=== PATIENT | female | born 1975 | race African-American/Black ===

== ENCOUNTER 2021-12-07 12:50 | Outpatient (CLI) | payer OTHER | END 2021-12-07 12:51 | disposition home or self-care (01) | LOC: CSHWCC 12:50 | PROVIDERS: ATTEND Nurse Practitioner Family | DX: L89.154 Pressure ulcer of sacral region, stage 4 (principal); L89.893 Pressure ulcer of other site, stage 3; L89.313 Pressure ulcer of right buttock, stage 3; L98.499 Non-pressure chronic ulcer of skin of other sites with unspecified severity; L97.511 Non-pressure chronic ulcer of other part of right foot limited to breakdown of skin; Z93.3 Colostomy status ==

== ENCOUNTER 2021-12-08 06:24 | Inpatient (IN) | payer OTHER ==
[2021-12-08] MEDS ORDERED: Acetaminophen 650 MG Suppository PR PRN (08:02)
[2021-12-08 09:27] LABS: #Eosinphils 0.2 10x3/uL (0.0-0.5); #Monocytes 0.6 10x3/uL (0.0-1.1); #Neutrophils 10.6 10x3/uL (1.5-8.4); %Basophils 0.1 % (0.0-2.0); %Eosinophils 1.1 % (0.0-6.0); %Lymphocytes 17.2 % (18.0-47.0); %Monocytes 4.1 % (0.0-10.0); %Neutrophils 76.7 % (40.0-75.0); Hemoglobin 10.1 g/dL (12.0-15.5); Mean Corpuscular HGB CONC 30.6 g/dL (32.0-36.0); Mean Corpuscular Hemoglobin 25.3 pg (27.0-33.0); Mean Corpuscular Volume 82.5 fl (81.6-98.3); Mean Platelet Volume 8.7 fl (7.4-10.4); Platelet Count 470 10x3/uL (150-450); RBC Distribution Width 16.1 % (11.5-14.5); White Blood Cell (WBC) Count 13.9 10x3/uL (3.5-10.5)
[2021-12-08 09:46] LABS: Lactic Acid 3.1 mmol/L (0.5-2.2)
[2021-12-08 09:51] LABS: Anion Gap 17 mmol/L (10-20); BUN (Urea Nitrogen) 8 mg/dL (7.0-18.7); Calc. Creatinine Clearance 0 mL/min (70-130); Calcium 8.9 mg/dL (7.8-10.44); Carbon Dioxide 23 mmol/L (22-29); Chloride 97 mmol/L (98-107); Glucose 156 mg/dL (70-105); Magnesium 1.2 mg/dL (1.6-2.6); Potassium 4.1 mmol/L (3.5-5.1); Sodium 133 mmol/L (136-145)
[2021-12-08] MEDS: Aspirin 81 mg Enteric Coated Tablet PO SCH (11:30)
[2021-12-08] MEDS: Acetaminophen 325 MG TAB PO PRN ×2 (11:31→16:38)
[2021-12-08] MEDS: Folic Acid 1 MG TAB PO SCH ×2 (11:31→20:31)
[2021-12-08] MEDS: Gabapentin 300 MG CAP PO SCH ×3 (11:31→20:30)
[2021-12-08] MEDS: predniSONE 10 MG TAB PO SCH ×2 (11:32→20:31)
[2021-12-08 15:56] VITALS: BMI 44.1
[2021-12-08] MEDS: Simvastatin 10 MG TAB PO SCH (16:38)
[2021-12-08] MEDS ORDERED: FLU VACC QS2021-22(6MOS UP)/PF 60 MCG/0.5 ML SYRINGE IM ONE (16:45)
[2021-12-08] MEDS ORDERED: Enoxaparin Sodium 120 MG/0.8 ML SYRINGE SC SCH (17:30)
[2021-12-08] MEDS ORDERED: Dextrose 5% in Water 1,000 ML IV PRN (17:55)
[2021-12-08] MEDS ORDERED: Dextrose 50% Abboject 50 ML SYRINGE SLOW IVP PRN (17:55)
[2021-12-08] MEDS: Insulin Regular 300 UNITS/3 ML VIAL SC PRN ×2 (18:06→22:30)
[2021-12-09] MEDS ORDERED: hydrOXYzine 25 MG TAB PO PRN (06:28)
[2021-12-09] MEDS: Insulin Regular 300 UNITS/3 ML VIAL SC PRN ×3 (06:41→21:52)
[2021-12-09] MEDS: Acetaminophen 325 MG TAB PO PRN ×2 (06:50→17:13)
[2021-12-09] MEDS ORDERED: Ergocalciferol 1.25 MG(50,000 UNITS) CAP PO SCH (09:00)
[2021-12-09] MEDS: HumaLOG 300 UNITS/3 ML VIAL SC SCH ×3 (10:53→17:13)
[2021-12-09] MEDS: traMADol HCl 50 MG TAB PO PRN ×2 (11:52→21:51)
[2021-12-09] MEDS: Furosemide 20 MG TAB PO SCH (11:55)
[2021-12-09] MEDS: Enoxaparin Sodium 120 MG/0.8 ML SYRINGE SC SCH ×2 (11:56→21:52)
[2021-12-09] MEDS: Ascorbic Acid 500 mg Chewable Tablet PO SCH (11:56)
[2021-12-09] MEDS: Ziprasidone 20 MG CAP PO SCH ×2 (11:56→21:51)
[2021-12-09] MEDS: Aspirin 81 mg Enteric Coated Tablet PO SCH (11:56)
[2021-12-09] MEDS: Gabapentin 300 MG CAP PO SCH ×3 (11:56→21:50)
[2021-12-09] MEDS: Folic Acid 1 MG TAB PO SCH ×2 (11:56→21:51)
[2021-12-09] MEDS: Metoprolol Tartrate 25 MG TAB PO SCH ×2 (11:57→21:52)
[2021-12-09] MEDS: predniSONE 10 MG TAB PO SCH ×2 (11:57→21:50)
[2021-12-09] MEDS: Amlodipine 10 MG TAB PO SCH (11:57)
[2021-12-09] MEDS: Spironolactone 25 MG TAB PO SCH (11:58)
[2021-12-09] MEDS: Triamterene/Hydrochlorothiazide 37.5 mg/25 mg Tablet PO SCH (11:59)
[2021-12-09] MEDS: Methocarbamol 500 MG TAB PO SCH ×3 (12:00→21:50)
[2021-12-09 12:17] LABS: #Eosinphils 0.1 10x3/uL (0.0-0.5); #Monocytes 0.5 10x3/uL (0.0-1.1); #Neutrophils 9.5 10x3/uL (1.5-8.4); %Basophils 0.1 % (0.0-2.0); %Eosinophils 1.1 % (0.0-6.0); %Lymphocytes 16.1 % (18.0-47.0); %Monocytes 4.3 % (0.0-10.0); %Neutrophils 77.7 % (40.0-75.0); Mean Corpuscular HGB CONC 31.9 g/dL (32.0-36.0); Mean Corpuscular Hemoglobin 25.8 pg (27.0-33.0); Mean Corpuscular Volume 80.9 fl (81.6-98.3); Mean Platelet Volume 8.8 fl (7.4-10.4); Platelet Count 474 10x3/uL (150-450); RBC Distribution Width 15.9 % (11.5-14.5); Red Blood Cell (RBC) Count 3.87 10x6/uL (3.90-5.03); White Blood Cell (WBC) Count 12.3 10x3/uL (3.5-10.5)
[2021-12-09 12:42] LABS: ALT (SGPT) 14 U/L (8-55); AST (SGOT) 8 U/L (5-34); Albumin 3.1 g/dL (3.5-5.0); Alkaline Phosphatase 111 U/L (40-110); Anion Gap 15 mmol/L (10-20); BUN (Urea Nitrogen) 6 mg/dL (7.0-18.7); Bilirubin, Total 0.2 mg/dL (0.2-1.2); CRP (Inflammatory) 20.19 mg/dL (= or < 0.5); Calc. Creatinine Clearance 239 mL/min (70-130); Calcium 9.1 mg/dL (7.8-10.44); Carbon Dioxide 26 mmol/L (22-29); Chloride 93 mmol/L (98-107); Globulin 3.6 g/dL (2.4-3.5); Glucose 173 mg/dL (70-105); Magnesium 1.2 mg/dL (1.6-2.6); Phosphorus 2.6 mg/dL (2.3-4.7); Protein, Total 6.7 g/dL (6.0-8.3); Sodium 130 mmol/L (136-145)
[2021-12-09 14:54] LABS: Hemoglobin A1c 9.2 % (4.0-6.0)
[2021-12-09] MEDS: Sodium Chloride 0.9% 1,000 ML IV SCH ×2 (15:14→22:00)
[2021-12-09] MEDS: Ergocalciferol 1.25 MG(50,000 UNITS) CAP PO SCH (15:15)
[2021-12-09 15:25] LABS: Lactic Acid 3.7 mmol/L (0.5-2.2)
[2021-12-09 16:48] LABS: Legionella Urinary Ag Negative (Negative); Strep pneumo Urine Ag NEGATIVE (NEGATIVE)
[2021-12-09] MEDS: Simvastatin 10 MG TAB PO SCH (17:03)
[2021-12-09] MEDS: Azithromycin 500 MG in Sodium Chloride 0.9% 250 ML 250 ML IVPB SCH (20:00)
[2021-12-09] MEDS: Amitriptyline HCl 25 MG TAB PO SCH (21:50)
[2021-12-09] MEDS: cefTRIAXone\\ROCEPHIN 2 GM in Sodium Chloride 0.9% 100 ML IVPB SCH (22:12)
[2021-12-10 04:25] LABS: #Eosinphils 0.2 10x3/uL (0.0-0.5); #Monocytes 0.5 10x3/uL (0.0-1.1); #Neutrophils 8.6 10x3/uL (1.5-8.4); %Basophils 0.3 % (0.0-2.0); %Eosinophils 1.9 % (0.0-6.0); %Lymphocytes 14.5 % (18.0-47.0); %Monocytes 4.4 % (0.0-10.0); %Neutrophils 77.6 % (40.0-75.0); Hemoglobin 9.7 g/dL (12.0-15.5); Mean Corpuscular HGB CONC 31.8 g/dL (32.0-36.0); Mean Corpuscular Hemoglobin 25.7 pg (27.0-33.0); Mean Corpuscular Volume 80.9 fl (81.6-98.3); Mean Platelet Volume 9.1 fl (7.4-10.4); Platelet Count 447 10x3/uL (150-450); RBC Distribution Width 15.9 % (11.5-14.5); Red Blood Cell (RBC) Count 3.77 10x6/uL (3.90-5.03); White Blood Cell (WBC) Count 11.1 10x3/uL (3.5-10.5)
[2021-12-10 04:58] LABS: Anion Gap 15 mmol/L (10-20); BUN (Urea Nitrogen) 6 mg/dL (7.0-18.7); CRP (Inflammatory) 16.49 mg/dL (= or < 0.5); Calc. Creatinine Clearance 254 mL/min (70-130); Calcium 8.5 mg/dL (7.8-10.44); Carbon Dioxide 26 mmol/L (22-29); Chloride 95 mmol/L (98-107); Glucose 186 mg/dL (70-105); Magnesium 1.3 mg/dL (1.6-2.6); Phosphorus 3.1 mg/dL (2.3-4.7); Potassium 4.3 mmol/L (3.5-5.1); Sodium 132 mmol/L (136-145)
[2021-12-10] MEDS: Sodium Chloride 0.9% 1,000 ML IV SCH (09:15)
[2021-12-10] MEDS: Triamterene/Hydrochlorothiazide 37.5 mg/25 mg Tablet PO SCH (10:23)
[2021-12-10] MEDS: Ziprasidone 20 MG CAP PO SCH ×2 (10:24→20:55)
[2021-12-10] MEDS: Methocarbamol 500 MG TAB PO SCH ×3 (10:24→20:55)
[2021-12-10] MEDS: Spironolactone 25 MG TAB PO SCH (10:24)
[2021-12-10] MEDS: predniSONE 10 MG TAB PO SCH ×2 (10:24→20:55)
[2021-12-10] MEDS: Gabapentin 300 MG CAP PO SCH ×3 (10:24→20:55)
[2021-12-10] MEDS: Folic Acid 1 MG TAB PO SCH ×2 (10:24→20:55)
[2021-12-10] MEDS: Ascorbic Acid 500 mg Chewable Tablet PO SCH (10:25)
[2021-12-10] MEDS: Metoprolol Tartrate 25 MG TAB PO SCH ×2 (10:25→20:55)
[2021-12-10] MEDS: Amlodipine 10 MG TAB PO SCH (10:25)
[2021-12-10] MEDS: HumaLOG 300 UNITS/3 ML VIAL SC SCH ×3 (10:26→16:31)
[2021-12-10] MEDS: Furosemide 20 MG TAB PO SCH (10:26)
[2021-12-10] MEDS: Enoxaparin Sodium 120 MG/0.8 ML SYRINGE SC SCH (10:26)
[2021-12-10] MEDS: Aspirin 81 mg Enteric Coated Tablet PO SCH (10:26)
[2021-12-10] MEDS ORDERED: Lidocaine 2% Viscous Solution 20 ML, Aluminum & Magnesium Hydroxide 30 ML, Donnatal Eli... SSW SCH (10:30)
[2021-12-10] MEDS ORDERED: Lidocaine Viscous Sol 2% 15 ml UD Cup SSW SCH (10:30)
[2021-12-10] MEDS ORDERED: Mag-Al Plus 1200 MG/1200 MG/120 MG/30 ML UDCUP SSW SCH (10:30)
[2021-12-10] MEDS ORDERED: Mag-Al Plus 1200 MG/1200 MG/120 MG/30 ML UDCUP PO SCH (10:30)
[2021-12-10] MEDS: Morphine 4 MG/ML VIAL SLOW IVP PRN ×2 (10:41→22:19)
[2021-12-10 11:04] LABS: Troponin I Less than 0.010 ng/mL (< 0.028)
[2021-12-10] MEDS ORDERED: Sodium Chloride 0.9% 250 ML 250 ML ONE (16:27)
[2021-12-10] MEDS: Simvastatin 10 MG TAB PO SCH (16:29)
[2021-12-10] MEDS: Azithromycin 500 MG in Sodium Chloride 0.9% 250 ML 250 ML IVPB SCH (16:30)
[2021-12-10] MEDS: cefTRIAXone\\ROCEPHIN 2 GM in Sodium Chloride 0.9% 100 ML IVPB SCH (17:45)
[2021-12-10] MEDS: Insulin Regular 300 UNITS/3 ML VIAL SC PRN (17:47)
[2021-12-10] MEDS: Amitriptyline HCl 25 MG TAB PO SCH (20:54)
[2021-12-10] MEDS: traMADol HCl 50 MG TAB PO PRN (20:55)
[2021-12-10] MEDS: Apixaban 5 MG TAB PO SCH (20:55)
[2021-12-11 04:03] LABS: #Eosinphils 0.1 10x3/uL (0.0-0.5); #Monocytes 0.6 10x3/uL (0.0-1.1); #Neutrophils 8.6 10x3/uL (1.5-8.4); %Basophils 0.3 % (0.0-2.0); %Eosinophils 0.7 % (0.0-6.0); %Monocytes 5.6 % (0.0-10.0); %Neutrophils 77.1 % (40.0-75.0); Hemoglobin 10.1 g/dL (12.0-15.5); Mean Corpuscular HGB CONC 31.3 g/dL (32.0-36.0); Mean Corpuscular Hemoglobin 25.7 pg (27.0-33.0); Mean Corpuscular Volume 82.2 fl (81.6-98.3); Mean Platelet Volume 8.7 fl (7.4-10.4); Platelet Count 474 10x3/uL (150-450); RBC Distribution Width 15.9 % (11.5-14.5); Red Blood Cell (RBC) Count 3.93 10x6/uL (3.90-5.03); White Blood Cell (WBC) Count 11.2 10x3/uL (3.5-10.5)
[2021-12-11 04:13] LABS: Anion Gap 16 mmol/L (10-20); BUN (Urea Nitrogen) 10 mg/dL (7.0-18.7); Calc. Creatinine Clearance 212 mL/min (70-130); Calcium 9.3 mg/dL (7.8-10.44); Carbon Dioxide 25 mmol/L (22-29); Chloride 94 mmol/L (98-107); Glucose 229 mg/dL (70-105); Magnesium 1.3 mg/dL (1.6-2.6); Phosphorus 2.8 mg/dL (2.3-4.7); Potassium 4.9 mmol/L (3.5-5.1); Sodium 130 mmol/L (136-145)
[2021-12-11] MEDS: Insulin Regular 300 UNITS/3 ML VIAL SC PRN ×3 (06:18→18:36)
[2021-12-11] MEDS ORDERED: Magnesium Sulfate 4 GM in Sodium Chloride 0.9% 250 ML 250 ML IVPB SCH (07:15)
[2021-12-11] MEDS: HumaLOG 300 UNITS/3 ML VIAL SC SCH ×3 (09:30→16:36)
[2021-12-11] MEDS: Magnesium 2 GM/50 ML 2 GM in Premix Bag 1 BAG IVPB SCH ×2 (09:30→12:30)
[2021-12-11] MEDS: Triamterene/Hydrochlorothiazide 37.5 mg/25 mg Tablet PO SCH (09:30)
[2021-12-11] MEDS: Gabapentin 300 MG CAP PO SCH ×3 (09:31→21:13)
[2021-12-11] MEDS: Aspirin 81 mg Enteric Coated Tablet PO SCH (09:31)
[2021-12-11] MEDS: Spironolactone 25 MG TAB PO SCH (09:31)
[2021-12-11] MEDS: Ascorbic Acid 500 mg Chewable Tablet PO SCH (09:31)
[2021-12-11] MEDS: Ziprasidone 20 MG CAP PO SCH ×2 (09:31→21:11)
[2021-12-11] MEDS: Folic Acid 1 MG TAB PO SCH ×2 (09:32→21:12)
[2021-12-11] MEDS: Apixaban 5 MG TAB PO SCH ×2 (09:32→21:11)
[2021-12-11] MEDS: Metoprolol Tartrate 25 MG TAB PO SCH ×2 (09:32→21:12)
[2021-12-11] MEDS: predniSONE 10 MG TAB PO SCH ×2 (09:32→21:11)
[2021-12-11] MEDS: Amlodipine 10 MG TAB PO SCH (09:32)
[2021-12-11] MEDS: Furosemide 20 MG TAB PO SCH (09:33)
[2021-12-11] MEDS: Methocarbamol 500 MG TAB PO SCH ×3 (09:33→21:13)
[2021-12-11] MEDS: Azithromycin 500 MG in Sodium Chloride 0.9% 250 ML 250 ML IVPB SCH (16:36)
[2021-12-11] MEDS: Simvastatin 10 MG TAB PO SCH (16:37)
[2021-12-11] MEDS: Morphine 4 MG/ML VIAL SLOW IVP PRN (16:46)
[2021-12-11] MEDS: cefTRIAXone\\ROCEPHIN 2 GM in Sodium Chloride 0.9% 100 ML IVPB SCH (18:36)
[2021-12-11] MEDS: Amitriptyline HCl 25 MG TAB PO SCH (21:11)
[2021-12-11] MEDS: traMADol HCl 50 MG TAB PO PRN (21:12)
[2021-12-12 03:56] LABS: #Eosinphils 0.2 10x3/uL (0.0-0.5); #Monocytes 0.5 10x3/uL (0.0-1.1); #Neutrophils 7.7 10x3/uL (1.5-8.4); %Basophils 0.4 % (0.0-2.0); %Eosinophils 1.7 % (0.0-6.0); %Lymphocytes 15.3 % (18.0-47.0); %Monocytes 4.9 % (0.0-10.0); Hemoglobin 10.1 g/dL (12.0-15.5); Mean Corpuscular HGB CONC 30.6 g/dL (32.0-36.0); Mean Corpuscular Hemoglobin 25.1 pg (27.0-33.0); Mean Corpuscular Volume 82.1 fl (81.6-98.3); Mean Platelet Volume 8.7 fl (7.4-10.4); Platelet Count 478 10x3/uL (150-450); RBC Distribution Width 15.9 % (11.5-14.5); Red Blood Cell (RBC) Count 4.02 10x6/uL (3.90-5.03); White Blood Cell (WBC) Count 10.2 10x3/uL (3.5-10.5)
[2021-12-12 04:29] LABS: Anion Gap 17 mmol/L (10-20); BUN (Urea Nitrogen) 15 mg/dL (7.0-18.7); Calc. Creatinine Clearance 208 mL/min (70-130); Calcium 9.7 mg/dL (7.8-10.44); Carbon Dioxide 24 mmol/L (22-29); Chloride 92 mmol/L (98-107); Glucose 288 mg/dL (70-105); Magnesium 1.9 mg/dL (1.6-2.6); Phosphorus 4.2 mg/dL (2.3-4.7); Potassium 4.6 mmol/L (3.5-5.1); Sodium 128 mmol/L (136-145)
[2021-12-12] MEDS: Insulin Regular 300 UNITS/3 ML VIAL SC PRN (06:05)
[2021-12-12] MEDS: Aspirin 81 mg Enteric Coated Tablet PO SCH (12:07)
[2021-12-12] MEDS: Gabapentin 300 MG CAP PO SCH ×2 (12:08→15:14)
[2021-12-12] MEDS: Amlodipine 10 MG TAB PO SCH (12:08)
[2021-12-12] MEDS: Folic Acid 1 MG TAB PO SCH (12:08)
[2021-12-12] MEDS: Apixaban 5 MG TAB PO SCH (12:09)
[2021-12-12] MEDS: Ascorbic Acid 500 mg Chewable Tablet PO SCH (12:09)
[2021-12-12] MEDS: Furosemide 20 MG TAB PO SCH (12:09)
[2021-12-12] MEDS: Ergocalciferol 1.25 MG(50,000 UNITS) CAP PO SCH (12:10)
[2021-12-12] MEDS: HumaLOG 300 UNITS/3 ML VIAL SC SCH ×2 (12:19→21:01)
[2021-12-12] MEDS: Morphine 4 MG/ML VIAL SLOW IVP PRN (12:20)
[2021-12-12] MEDS: Triamterene/Hydrochlorothiazide 37.5 mg/25 mg Tablet PO SCH (12:46)
[2021-12-12] MEDS: Spironolactone 25 MG TAB PO SCH (12:46)
[2021-12-12] MEDS: Ziprasidone 20 MG CAP PO SCH (12:46)
[2021-12-12] MEDS: predniSONE 10 MG TAB PO SCH (12:47)
[2021-12-12] MEDS: Methocarbamol 500 MG TAB PO SCH ×2 (12:47→15:16)
[2021-12-12] MEDS: Metoprolol Tartrate 25 MG TAB PO SCH (12:47)
[2021-12-12 12:56] VITALS: BP 136/94; TEMP 97.4
[2021-12-12] MEDS: traMADol HCl 50 MG TAB PO PRN (14:39)
== END 2021-12-12 15:33 | disposition home or self-care (01) | DRG 393 ==
LOC: INTOOBSV 06:24 → CSHTELE 06:24 → OBSVTOIN 12-09 14:33
PROVIDERS: ADMIT Internal Medicine; ATTEND Family Medicine
DX: K43.5 Parastomal hernia without obstruction or gangrene (principal); J18.9 Pneumonia, unspecified organism; I82.411 Acute embolism and thrombosis of right femoral vein; G82.20 Paraplegia, unspecified; G25.9 Extrapyramidal and movement disorder, unspecified; Z68.41 Body mass index [BMI] 40.0-44.9, adult; F31.9 Bipolar disorder, unspecified; I12.9 Hypertensive chronic kidney disease with stage 1 through stage 4 chronic kidney disease, or unspecified chronic kidney disease; N18.2 Chronic kidney disease, stage 2 (mild); E11.22 Type 2 diabetes mellitus with diabetic chronic kidney disease; R07.89 Other chest pain; K21.9 Gastro-esophageal reflux disease without esophagitis; L89.159 Pressure ulcer of sacral region, unspecified stage; E11.69 Type 2 diabetes mellitus with other specified complication; E66.01 Morbid (severe) obesity due to excess calories; E78.5 Hyperlipidemia, unspecified; Z88.8 Allergy status to other drugs, medicaments and biological substances; Z79.4 Long term (current) use of insulin; Z79.899 Other long term (current) drug therapy; Z86.711 Personal history of pulmonary embolism
CPT/HCPCS: 36415; 36416; 71045; 71275; 80048; 80053; 83036; 83605; 83735; 83880; 84100; 84145; 84484; 85025; 86140; 87040; 87449; 87899; 93005; 93010; 96372; G0378; J0456; J0696; J1650; J1815; J2270; J3475; J3490; J7050; J7512

== ENCOUNTER 2021-12-19 13:08 | Outpatient (CLI) | payer OTHER | END 2021-12-19 13:09 | disposition home or self-care (01) | LOC: CSHWCC 13:08 | PROVIDERS: ATTEND Nurse Practitioner Family | DX: L89.154 Pressure ulcer of sacral region, stage 4 (principal); L89.313 Pressure ulcer of right buttock, stage 3; L97.522 Non-pressure chronic ulcer of other part of left foot with fat layer exposed; L97.511 Non-pressure chronic ulcer of other part of right foot limited to breakdown of skin; L98.499 Non-pressure chronic ulcer of skin of other sites with unspecified severity | CPT/HCPCS: 97605; 99213; G0463 ==

== ENCOUNTER 2021-12-22 09:12 | Outpatient (CLI) | payer OTHER | END 2021-12-22 09:13 | disposition home or self-care (01) | LOC: CSHWCC 09:12 | PROVIDERS: ATTEND Nurse Practitioner Family | DX: L89.154 Pressure ulcer of sacral region, stage 4 (principal); L89.313 Pressure ulcer of right buttock, stage 3; L89.893 Pressure ulcer of other site, stage 3; L97.511 Non-pressure chronic ulcer of other part of right foot limited to breakdown of skin; L98.499 Non-pressure chronic ulcer of skin of other sites with unspecified severity ==

== ENCOUNTER 2021-12-26 12:36 | Outpatient (CLI) | payer OTHER | END 2021-12-26 12:37 | disposition home or self-care (01) | LOC: CSHWCC 12:36 | PROVIDERS: ATTEND Nurse Practitioner Family | DX: L89.313 Pressure ulcer of right buttock, stage 3 (principal); L97.522 Non-pressure chronic ulcer of other part of left foot with fat layer exposed; L97.511 Non-pressure chronic ulcer of other part of right foot limited to breakdown of skin; L98.499 Non-pressure chronic ulcer of skin of other sites with unspecified severity; L89.154 Pressure ulcer of sacral region, stage 4 | CPT/HCPCS: 36416 ==

== ENCOUNTER 2021-12-29 14:03 | Outpatient (CLI) | payer OTHER | END 2021-12-29 14:04 | disposition home or self-care (01) | LOC: CSHWCC 14:03 | PROVIDERS: ATTEND Nurse Practitioner Family | DX: L89.319 Pressure ulcer of right buttock, unspecified stage (principal); L89.159 Pressure ulcer of sacral region, unspecified stage; L97.529 Non-pressure chronic ulcer of other part of left foot with unspecified severity; L97.519 Non-pressure chronic ulcer of other part of right foot with unspecified severity; L98.499 Non-pressure chronic ulcer of skin of other sites with unspecified severity | CPT/HCPCS: 99213; G0463 ==

== ENCOUNTER 2022-01-01 07:40 | Inpatient (IN) | payer OTHER ==
[2022-01-01] MEDS ORDERED: hydrALAZINE 20 MG/ML VIAL SLOW IVP PRN (11:20)
[2022-01-01] MEDS ORDERED: Dextrose 50% Abboject 50 ML SYRINGE SLOW IVP PRN (11:21)
[2022-01-01] MEDS ORDERED: Dextrose 5% in Water 1,000 ML IV PRN (11:21)
[2022-01-01] MEDS ORDERED: Electrolyte Replacement Protocol 1 EACH FS SCH (11:30)
[2022-01-01] MEDS ORDERED: HumaLOG 300 UNITS/3 ML VIAL SC PRN ×2 (11:36)
[2022-01-01] MEDS ORDERED: Vancomycin 1 GM in Premix Bag 1 BAG IVPB SCH (11:45)
[2022-01-01] MEDS ORDERED: FLU VACC QS2021-22(6MOS UP)/PF 60 MCG/0.5 ML SYRINGE IM ONE (11:45)
[2022-01-01] MEDS: traMADol HCl 50 MG TAB PO SCH ×2 (12:20→17:23)
[2022-01-01 13:27] VITALS: BMI 28.3
[2022-01-01 13:35] LABS: Anion Gap 22 mmol/L (10-20); BUN (Urea Nitrogen) 6 mg/dL (7.0-18.7); Calc. Creatinine Clearance 148 mL/min (70-130); Calcium 8.3 mg/dL (7.8-10.44); Carbon Dioxide 10 mmol/L (22-29); Chloride 96 mmol/L (98-107); Glucose 77 mg/dL (70-105); Potassium 4.4 mmol/L (3.5-5.1); Sodium 124 mmol/L (136-145)
[2022-01-01] MEDS ORDERED: ADMIXTURE FEE IVPB SCH (14:00)
[2022-01-01] MEDS ORDERED: SODIUM CHLORIDE IVPB SCH (14:00)
[2022-01-01] MEDS ORDERED: VANCOMYCIN IVPB SCH (14:00)
[2022-01-01] MEDS: Sodium Chloride 0.9% 1,000 ML IV SCH (14:17)
[2022-01-01] MEDS: Magnesium 2 GM/50 ML(in water) 2 GM in Premix Bag 1 BAG IVPB SCH ×2 (14:17→16:36)
[2022-01-01] MEDS: Cefepime 2 GM in Sodium Chloride 0.9% 100 ML IVPB SCH ×2 (14:19→22:22)
[2022-01-01 15:14] LABS: Bilirubin Neg (Negative); Blood, Urine 50 (Negative); Clarity Clear (Clear); Glucose, Urine (Dipstick) Normal (Negative); Ketone, Urine 5 mg/dL (Negative); Leukocyte 500 (Negative); Nitrite Negative (Negative); Protein, Urine (Dipstick) Negative (Neg-Trace); Urobilinogen Normal mg/dL (Less than 2)
[2022-01-01 15:16] LABS: Urine Culture Reflex No No
[2022-01-01 15:21] LABS: Bacteria/HPF Rare-Few HPF (None Seen); Squamous Epithelial 0-3 HPF (0-3); WBC/HPF 21-50 HPF (0-3)
[2022-01-01] MEDS ORDERED: Sodium Chloride 0.9% 100 ML ONE (20:01)
[2022-01-01] MEDS ORDERED: Cefepime 2 GM VIAL ONE (20:01)
[2022-01-01] MEDS: Enoxaparin Sodium 80 MG/0.8 ML SYRINGE SC SCH (20:11)
[2022-01-01] MEDS: Amitriptyline HCl 25 MG TAB PO SCH (20:11)
[2022-01-01] MEDS: Ziprasidone 20 MG CAP PO SCH (20:11)
[2022-01-01] MEDS: Folic Acid 1 MG TAB PO SCH (20:11)
[2022-01-01] MEDS: predniSONE 10 MG TAB PO SCH (20:12)
[2022-01-01] MEDS: Cholecalciferol 1,000 UNITS (25 MCG) TAB PO SCH (20:12)
[2022-01-01] MEDS ORDERED: Apixaban 5 MG TAB PO SCH ×2 (21:00)
[2022-01-01] MEDS: Vancomycin HCl 1 GM in Sodium Chloride 0.9% 250 ML 250 ML IVPB SCH (22:04)
[2022-01-02] MEDS: traMADol HCl 50 MG TAB PO SCH ×4 (00:01→18:47)
[2022-01-02 04:20] LABS: #Monocytes 0.5 10x3/uL (0.0-1.1); #Neutrophils 12.6 10x3/uL (1.5-8.4); %Basophils 0.2 % (0.0-2.0); %Eosinophils 0.1 % (0.0-6.0); %Lymphocytes 7.5 % (18.0-47.0); %Monocytes 3.6 % (0.0-10.0); %Neutrophils 86.2 % (40.0-75.0); Hemoglobin 8.5 g/dL (12.0-15.5); Mean Corpuscular HGB CONC 32.9 g/dL (32.0-36.0); Mean Corpuscular Hemoglobin 25.6 pg (27.0-33.0); Mean Corpuscular Volume 77.7 fl (81.6-98.3); Mean Platelet Volume 8.5 fl (7.4-10.4); Platelet Count 465 10x3/uL (150-450); RBC Distribution Width 15.2 % (11.5-14.5); Red Blood Cell (RBC) Count 3.32 10x6/uL (3.90-5.03); White Blood Cell (WBC) Count 14.6 10x3/uL (3.5-10.5)
[2022-01-02] MEDS: Sodium Chloride 0.9% 1,000 ML IV SCH ×2 (04:23→14:07)
[2022-01-02 04:30] LABS: Phosphorus 2.9 mg/dL (2.3-4.7)
[2022-01-02 04:33] LABS: Anion Gap 13 mmol/L (10-20); BUN (Urea Nitrogen) 10 mg/dL (7.0-18.7); Calc. Creatinine Clearance 156 mL/min (70-130); Calcium 8.4 mg/dL (7.8-10.44); Carbon Dioxide 24 mmol/L (22-29); Chloride 95 mmol/L (98-107); Glucose 169 mg/dL (70-105); Magnesium 2.1 mg/dL (1.6-2.6); Potassium 3.9 mmol/L (3.5-5.1); Sodium 128 mmol/L (136-145)
[2022-01-02] MEDS: Vancomycin HCl 1 GM in Sodium Chloride 0.9% 250 ML 250 ML IVPB SCH ×2 (05:11→12:46)
[2022-01-02] MEDS: Cefepime 2 GM in Sodium Chloride 0.9% 100 ML IVPB SCH ×3 (05:12→21:36)
[2022-01-02] MEDS ORDERED: Enoxaparin Sodium 80 MG/0.8 ML SYRINGE ONE (08:18)
[2022-01-02] MEDS ORDERED: Amlodipine 10 MG TAB PO SCH (09:00)
[2022-01-02] MEDS ORDERED: Aspirin 325 MG TAB PO SCH (09:00)
[2022-01-02] MEDS: Enoxaparin Sodium 80 MG/0.8 ML SYRINGE SC SCH ×2 (10:06→21:34)
[2022-01-02] MEDS: Ascorbic Acid 500 mg Chewable Tablet PO SCH (10:07)
[2022-01-02] MEDS: predniSONE 10 MG TAB PO SCH ×2 (10:07→21:34)
[2022-01-02] MEDS: Spironolactone 25 MG TAB PO SCH (10:07)
[2022-01-02] MEDS: Triamterene/Hydrochlorothiazide 37.5 mg/25 mg Tablet PO SCH (10:07)
[2022-01-02] MEDS: Folic Acid 1 MG TAB PO SCH ×2 (10:07→21:36)
[2022-01-02] MEDS: Ziprasidone 20 MG CAP PO SCH ×2 (10:07→21:34)
[2022-01-02] MEDS: Zinc Sulfate 220 MG CAP PO SCH (10:07)
[2022-01-02] MEDS: Amlodipine 10 MG TAB PO SCH (10:07)
[2022-01-02] MEDS: Furosemide 20 MG TAB PO SCH (10:07)
[2022-01-02] MEDS: Simvastatin 10 MG TAB PO SCH (10:08)
[2022-01-02] MEDS: HumaLOG 300 UNITS/3 ML VIAL SC PRN ×3 (12:46→21:47)
[2022-01-02] MEDS: Cholecalciferol 1,000 UNITS (25 MCG) TAB PO SCH (21:34)
[2022-01-02] MEDS: Amitriptyline HCl 25 MG TAB PO SCH (21:34)
[2022-01-02] MEDS: Vancomycin HCl 750 MG in Sodium Chloride 0.9% 250 ML 250 ML IVPB SCH (22:05)
[2022-01-03] MEDS: traMADol HCl 50 MG TAB PO SCH ×5 (02:06→23:38)
[2022-01-03 04:16] LABS: #Monocytes 0.4 10x3/uL (0.0-1.1); #Neutrophils 9.5 10x3/uL (1.5-8.4); %Basophils 0.2 % (0.0-2.0); %Eosinophils 0.1 % (0.0-6.0); %Lymphocytes 9.5 % (18.0-47.0); %Monocytes 3.4 % (0.0-10.0); %Neutrophils 84.5 % (40.0-75.0); Hemoglobin 8.3 g/dL (12.0-15.5); Mean Corpuscular HGB CONC 32.9 g/dL (32.0-36.0); Mean Corpuscular Hemoglobin 25.5 pg (27.0-33.0); Mean Corpuscular Volume 77.3 fl (81.6-98.3); Mean Platelet Volume 8.4 fl (7.4-10.4); Platelet Count 487 10x3/uL (150-450); RBC Distribution Width 15.3 % (11.5-14.5); Red Blood Cell (RBC) Count 3.26 10x6/uL (3.90-5.03); White Blood Cell (WBC) Count 11.2 10x3/uL (3.5-10.5)
[2022-01-03 04:39] LABS: Anion Gap 12 mmol/L (10-20); BUN (Urea Nitrogen) 9 mg/dL (7.0-18.7); Calc. Creatinine Clearance 148 mL/min (70-130); Calcium 8.5 mg/dL (7.8-10.44); Carbon Dioxide 24 mmol/L (22-29); Chloride 98 mmol/L (98-107); Glucose 143 mg/dL (70-105); Potassium 3.5 mmol/L (3.5-5.1); Sodium 130 mmol/L (136-145)
[2022-01-03] MEDS ORDERED: Potassium Chloride 20 MEQ TAB PO SCH (05:15)
[2022-01-03] MEDS: Vancomycin HCl 750 MG in Sodium Chloride 0.9% 250 ML 250 ML IVPB SCH ×2 (05:26→12:11)
[2022-01-03] MEDS: HumaLOG 300 UNITS/3 ML VIAL SC PRN ×4 (06:23→20:40)
[2022-01-03] MEDS: Cefepime 2 GM in Sodium Chloride 0.9% 100 ML IVPB SCH ×3 (06:24→22:30)
[2022-01-03] MEDS: Sodium Chloride 0.9% 1,000 ML IV SCH ×2 (09:36→18:48)
[2022-01-03] MEDS: Amlodipine 10 MG TAB PO SCH (09:37)
[2022-01-03] MEDS: Furosemide 20 MG TAB PO SCH (09:38)
[2022-01-03] MEDS: Folic Acid 1 MG TAB PO SCH ×2 (09:38→20:31)
[2022-01-03] MEDS: Ascorbic Acid 500 mg Chewable Tablet PO SCH (09:38)
[2022-01-03] MEDS: Enoxaparin Sodium 80 MG/0.8 ML SYRINGE SC SCH ×2 (09:38→20:31)
[2022-01-03] MEDS: predniSONE 10 MG TAB PO SCH ×2 (09:39→20:31)
[2022-01-03] MEDS: Spironolactone 25 MG TAB PO SCH (09:39)
[2022-01-03] MEDS: Simvastatin 10 MG TAB PO SCH (09:39)
[2022-01-03] MEDS: Triamterene/Hydrochlorothiazide 37.5 mg/25 mg Tablet PO SCH (09:40)
[2022-01-03] MEDS: Ziprasidone 20 MG CAP PO SCH ×2 (09:40→20:32)
[2022-01-03] MEDS: Zinc Sulfate 220 MG CAP PO SCH (09:40)
[2022-01-03] MEDS ORDERED: hydrOXYzine 25 MG TAB PO PRN (12:10)
[2022-01-03 12:27] LABS: Vancomycin, Trough 22.2 ug/mL
[2022-01-03] MEDS: Gabapentin 400 MG CAP PO SCH ×2 (15:35→20:31)
[2022-01-03] MEDS: Cholecalciferol 1,000 UNITS (25 MCG) TAB PO SCH (20:31)
[2022-01-03] MEDS: Amitriptyline HCl 25 MG TAB PO SCH (20:31)
[2022-01-03] MEDS: Metoprolol Tartrate 25 MG TAB PO SCH (20:32)
[2022-01-04 04:04] LABS: #Monocytes 0.6 10x3/uL (0.0-1.1); #Neutrophils 9.6 10x3/uL (1.5-8.4); %Basophils 0.2 % (0.0-2.0); %Eosinophils 0.1 % (0.0-6.0); %Lymphocytes 12.2 % (18.0-47.0); %Monocytes 4.5 % (0.0-10.0); %Neutrophils 79.2 % (40.0-75.0); Hemoglobin 8.4 g/dL (12.0-15.5); Mean Corpuscular HGB CONC 32.6 g/dL (32.0-36.0); Mean Corpuscular Hemoglobin 25.1 pg (27.0-33.0); Mean Platelet Volume 8.4 fl (7.4-10.4); Platelet Count 494 10x3/uL (150-450); RBC Distribution Width 15.4 % (11.5-14.5); Red Blood Cell (RBC) Count 3.35 10x6/uL (3.90-5.03); White Blood Cell (WBC) Count 12.1 10x3/uL (3.5-10.5)
[2022-01-04 04:23] LABS: Anion Gap 12 mmol/L (10-20); BUN (Urea Nitrogen) 6 mg/dL (7.0-18.7); Calc. Creatinine Clearance 159 mL/min (70-130); Calcium 8.6 mg/dL (7.8-10.44); Carbon Dioxide 24 mmol/L (22-29); Chloride 99 mmol/L (98-107); Glucose 159 mg/dL (70-105); Magnesium 1.6 mg/dL (1.6-2.6); Phosphorus 1.5 mg/dL (2.3-4.7); Sodium 131 mmol/L (136-145)
[2022-01-04] MEDS: Sodium Chloride 0.9% 1,000 ML IV SCH (04:51)
[2022-01-04] MEDS: Vancomycin HCl 750 MG in Sodium Chloride 0.9% 250 ML 250 ML IVPB SCH ×2 (04:52→17:01)
[2022-01-04] MEDS: Cefepime 2 GM in Sodium Chloride 0.9% 100 ML IVPB SCH ×3 (05:23→22:01)
[2022-01-04] MEDS: traMADol HCl 50 MG TAB PO SCH ×4 (05:24→22:04)
[2022-01-04] MEDS: HumaLOG 300 UNITS/3 ML VIAL SC PRN ×4 (05:25→21:16)
[2022-01-04] MEDS ORDERED: Potassium Phosphate 30 MMOL in Sodium Chloride 0.9% 500 ML IVPB SCH (05:45)
[2022-01-04] MEDS: Magnesium 2 GM/50 ML(in water) 2 GM in Premix Bag 1 BAG IVPB SCH ×2 (06:18→09:31)
[2022-01-04] MEDS ORDERED: Apixaban 5 MG TAB PO SCH (09:00)
[2022-01-04] MEDS: Ascorbic Acid 500 mg Chewable Tablet PO SCH (09:32)
[2022-01-04] MEDS: Amlodipine 10 MG TAB PO SCH (09:32)
[2022-01-04] MEDS: Furosemide 20 MG TAB PO SCH (09:33)
[2022-01-04] MEDS: Enoxaparin Sodium 80 MG/0.8 ML SYRINGE SC SCH ×2 (09:33→20:58)
[2022-01-04] MEDS: Folic Acid 1 MG TAB PO SCH ×2 (09:33→20:59)
[2022-01-04] MEDS: Gabapentin 400 MG CAP PO SCH ×3 (09:33→20:59)
[2022-01-04] MEDS: Metoprolol Tartrate 25 MG TAB PO SCH ×2 (09:34→20:59)
[2022-01-04] MEDS: predniSONE 10 MG TAB PO SCH ×2 (09:34→20:59)
[2022-01-04] MEDS: Simvastatin 10 MG TAB PO SCH (09:34)
[2022-01-04] MEDS: Spironolactone 25 MG TAB PO SCH (09:34)
[2022-01-04] MEDS: Zinc Sulfate 220 MG CAP PO SCH (09:35)
[2022-01-04] MEDS: Triamterene/Hydrochlorothiazide 37.5 mg/25 mg Tablet PO SCH (09:35)
[2022-01-04] MEDS: Ziprasidone 20 MG CAP PO SCH (09:35)
[2022-01-04] MEDS ORDERED: Magnesium 2 GM/50 ML(in water) 2 GM in Premix Bag 1 BAG IVPB SCH (15:00)
[2022-01-04 15:06] LABS: Hemoglobin 8.8 g/dL (12.0-15.5); Mean Corpuscular HGB CONC 32.4 g/dL (32.0-36.0); Mean Corpuscular Hemoglobin 25.5 pg (27.0-33.0); Mean Corpuscular Volume 78.8 fl (81.6-98.3); Mean Platelet Volume 8.5 fl (7.4-10.4); Platelet Count 592 10x3/uL (150-450); RBC Distribution Width 15.9 % (11.5-14.5); Red Blood Cell (RBC) Count 3.45 10x6/uL (3.90-5.03); White Blood Cell (WBC) Count 15.1 10x3/uL (3.5-10.5)
[2022-01-04 15:25] LABS: ALT (SGPT) 32 U/L (8-55); AST (SGOT) 10 U/L (5-34); Albumin 2.6 g/dL (3.5-5.0); Alkaline Phosphatase 224 U/L (40-110); Anion Gap 12 mmol/L (10-20); BUN (Urea Nitrogen) 11 mg/dL (7.0-18.7); Bilirubin, Total 0.1 mg/dL (0.2-1.2); Calc. Creatinine Clearance 133 mL/min (70-130); Calcium 8.2 mg/dL (7.8-10.44); Carbon Dioxide 24 mmol/L (22-29); Chloride 97 mmol/L (98-107); Globulin 3.2 g/dL (2.4-3.5); Glucose 251 mg/dL (70-105); Magnesium 2.4 mg/dL (1.6-2.6); Potassium 5.3 mmol/L (3.5-5.1); Protein, Total 5.8 g/dL (6.0-8.3); Sodium 128 mmol/L (136-145)
[2022-01-04 15:32] LABS: Band 2 % (5-11); Eosinophils 2 % (0-10); Lymphocytes 19 % (21-51); Monocytes 3 % (0-10); Myelocyte 3 % (0-0); Nucleated RBC 1 % (0)
[2022-01-04 15:35] LABS: Neutrophil 71 % (42-75)
[2022-01-04 15:36] LABS: Anisocytosis SLIGHT = 6-15 cells (100X) (0-5/hpf); Microcytosis SLIGHT = 6-15 cells (100X) (0-5/hpf)
[2022-01-04 15:37] LABS: Hypochromia SLIGHT = 6-15 cells (100X) (0-5/hpf)
[2022-01-04 15:38] LABS: Platelet Morphology Comment Appears Increased; Small Platelets MODERATE
[2022-01-04 15:39] LABS: MDiff Complete? YES
[2022-01-04 18:59] LABS: Anion Gap 16 mmol/L (10-20); BUN (Urea Nitrogen) 12 mg/dL (7.0-18.7); Calc. Creatinine Clearance 135 mL/min (70-130); Calcium 8.9 mg/dL (7.8-10.44); Carbon Dioxide 18 mmol/L (22-29); Chloride 98 mmol/L (98-107); Glucose 257 mg/dL (70-105); Potassium 6.2 mmol/L (3.5-5.1); Sodium 126 mmol/L (136-145)
[2022-01-04] MEDS ORDERED: Calcium Gluconate 4.6 MEQ in Sodium Chloride 0.9% 100 ML IVPB SCH (19:58)
[2022-01-04] MEDS ORDERED: Insulin Regular 300 UNITS/3 ML VIAL IVP SCH (20:00)
[2022-01-04] MEDS ORDERED: Dextrose 50% Abboject 50 ML SYRINGE SLOW IVP SCH (20:00)
[2022-01-04 20:52] LABS: Actual Bicarbonate (HCO3v) 24 mEq/L (22-28); Base Excess -1.6 mEq/L (-2.0 to +3.0); Chloride (VBG) 92 mmol/L (98-106); Hemoglobin (Hb) 10.6 g/dL (11.7-16.0); Potassium (VBG) 5.25 mmol/L (3.70-5.30); Puncture Site Other Site; Sodium 122.7 mmol/L (133-146); pH (venous) 7.35 (7.32-7.43)
[2022-01-04] MEDS: Cholecalciferol 1,000 UNITS (25 MCG) TAB PO SCH (20:59)
[2022-01-04] MEDS: Amitriptyline HCl 25 MG TAB PO SCH (20:59)
[2022-01-04 21:01] LABS: Anion Gap 14 mmol/L (10-20); BUN (Urea Nitrogen) 13 mg/dL (7.0-18.7); Calc. Creatinine Clearance 118 mL/min (70-130); Calcium 9.1 mg/dL (7.8-10.44); Carbon Dioxide 23 mmol/L (22-29); Chloride 92 mmol/L (98-107); Glucose 347 mg/dL (70-105); Potassium 5.3 mmol/L (3.5-5.1); Sodium 124 mmol/L (136-145)
[2022-01-04] MEDS ORDERED: Sodium Chloride 0.9% 1,000 ML IV SCH (21:15)
[2022-01-05 02:32] LABS: #Basophils 0.1 10x3/uL (0.0-0.2); #Monocytes 0.9 10x3/uL (0.0-1.1); #Neutrophils 15.3 10x3/uL (1.5-8.4); %Basophils 0.4 % (0.0-2.0); %Eosinophils 0.2 % (0.0-6.0); %Lymphocytes 12.8 % (18.0-47.0); %Monocytes 4.5 % (0.0-10.0); %Neutrophils 74.9 % (40.0-75.0); Mean Corpuscular HGB CONC 32.5 g/dL (32.0-36.0); Mean Corpuscular Hemoglobin 25.4 pg (27.0-33.0); Mean Corpuscular Volume 78.2 fl (81.6-98.3); Mean Platelet Volume 8.5 fl (7.4-10.4); Platelet Count 599 10x3/uL (150-450); RBC Distribution Width 15.7 % (11.5-14.5); Red Blood Cell (RBC) Count 3.54 10x6/uL (3.90-5.03); White Blood Cell (WBC) Count 20.4 10x3/uL (3.5-10.5)
[2022-01-05 02:46] LABS: Anion Gap 14 mmol/L (10-20); BUN (Urea Nitrogen) 12 mg/dL (7.0-18.7); Calc. Creatinine Clearance 120 mL/min (70-130); Calcium 8.9 mg/dL (7.8-10.44); Carbon Dioxide 22 mmol/L (22-29); Chloride 94 mmol/L (98-107); Glucose 296 mg/dL (70-105); Magnesium 2.1 mg/dL (1.6-2.6); Potassium 4.9 mmol/L (3.5-5.1); Sodium 125 mmol/L (136-145)
[2022-01-05 02:59] LABS: Phosphorus 1.8 mg/dL (2.3-4.7)
[2022-01-05] MEDS ORDERED: PHOS-NAK 1 PKT PACK PO SCH (03:30)
[2022-01-05 04:20] LABS: Vancomycin, Trough 13.7 ug/mL
[2022-01-05] MEDS ORDERED: Docusate 100 MG CAP PO PRN (04:22)
[2022-01-05 04:31] LABS: Anion Gap 15 mmol/L (10-20); BUN (Urea Nitrogen) 11 mg/dL (7.0-18.7); Calc. Creatinine Clearance 131 mL/min (70-130); Carbon Dioxide 22 mmol/L (22-29); Chloride 94 mmol/L (98-107); Glucose 250 mg/dL (70-105); Magnesium 2.1 mg/dL (1.6-2.6); Potassium 4.5 mmol/L (3.5-5.1); Sodium 126 mmol/L (136-145)
[2022-01-05 04:35] LABS: Phosphorus 1.6 mg/dL (2.3-4.7)
[2022-01-05] MEDS: Vancomycin HCl 750 MG in Sodium Chloride 0.9% 250 ML 250 ML IVPB SCH (04:48)
[2022-01-05] MEDS: HumaLOG 300 UNITS/3 ML VIAL SC PRN ×2 (04:53→21:30)
[2022-01-05] MEDS ORDERED: Docusate 100 MG CAP PO SCH (05:00)
[2022-01-05] MEDS: traMADol HCl 50 MG TAB PO SCH ×5 (05:01→23:44)
[2022-01-05] MEDS: Cefepime 2 GM in Sodium Chloride 0.9% 100 ML IVPB SCH ×2 (06:15→12:44)
[2022-01-05 06:57] LABS: Lactic Acid 2.6 mmol/L (0.5-2.2)
[2022-01-05] MEDS: Ondansetron ODT 4 MG TAB PO PRN ×2 (09:23→13:16)
[2022-01-05] MEDS: Zinc Sulfate 220 MG CAP PO SCH ×2 (12:41→18:40)
[2022-01-05] MEDS: Simvastatin 10 MG TAB PO SCH ×2 (12:41→18:40)
[2022-01-05] MEDS: PHOS-NAK 1 PKT PACK PO SCH ×4 (12:42→21:20)
[2022-01-05] MEDS: predniSONE 10 MG TAB PO SCH ×3 (12:42→21:19)
[2022-01-05] MEDS: Enoxaparin Sodium 80 MG/0.8 ML SYRINGE SC SCH ×2 (12:42→21:20)
[2022-01-05] MEDS: Furosemide 20 MG TAB PO SCH ×2 (12:42→18:40)
[2022-01-05] MEDS: Folic Acid 1 MG TAB PO SCH ×3 (12:42→21:19)
[2022-01-05] MEDS: Ascorbic Acid 500 mg Chewable Tablet PO SCH ×2 (12:43→18:40)
[2022-01-05] MEDS: Gabapentin 400 MG CAP PO SCH ×4 (12:43→21:20)
[2022-01-05] MEDS: Metoprolol Tartrate 25 MG TAB PO SCH ×3 (12:44→21:19)
[2022-01-05] MEDS: Amlodipine 10 MG TAB PO SCH ×2 (12:44→18:40)
[2022-01-05] MEDS ORDERED: Polyethylene Glycol 3350 17 GM Packet PO SCH (15:45)
[2022-01-05] MEDS ORDERED: Piperacillin/Tazobactam 4.5 GM in Sodium Chloride 0.9% 100 ML IVPB SCH ×2 (15:45)
[2022-01-05] MEDS ORDERED: Milk Of Magnesia 30 ML UDCUP PO SCH (15:45)
[2022-01-05 16:43] LABS: Anion Gap 15 mmol/L (10-20); BUN (Urea Nitrogen) 10 mg/dL (7.0-18.7); Calc. Creatinine Clearance 143 mL/min (70-130); Calcium 8.9 mg/dL (7.8-10.44); Carbon Dioxide 24 mmol/L (22-29); Chloride 95 mmol/L (98-107); Glucose 175 mg/dL (70-105); Potassium 4.7 mmol/L (3.5-5.1); Sodium 129 mmol/L (136-145)
[2022-01-05] MEDS ORDERED: Vancomycin HCl 1 GM in Sodium Chloride 0.9% 250 ML 250 ML IVPB SCH (17:00)
[2022-01-05] MEDS: Piperacillin/Tazobactam 4.5 GM in Sodium Chloride 0.9% 100 ML IVPB SCH (21:18)
[2022-01-05] MEDS: Amitriptyline HCl 25 MG TAB PO SCH (21:19)
[2022-01-05] MEDS: Cholecalciferol 1,000 UNITS (25 MCG) TAB PO SCH (21:19)
[2022-01-06] MEDS: Piperacillin/Tazobactam 4.5 GM in Sodium Chloride 0.9% 100 ML IVPB SCH ×3 (04:29→20:51)
[2022-01-06 04:45] LABS: Hemoglobin 8.5 g/dL (12.0-15.5); Mean Corpuscular HGB CONC 32.4 g/dL (32.0-36.0); Mean Corpuscular Hemoglobin 25.6 pg (27.0-33.0); Mean Corpuscular Volume 78.9 fl (81.6-98.3); Mean Platelet Volume 8.3 fl (7.4-10.4); Platelet Count 602 10x3/uL (150-450); RBC Distribution Width 16.1 % (11.5-14.5); Red Blood Cell (RBC) Count 3.32 10x6/uL (3.90-5.03); White Blood Cell (WBC) Count 20.5 10x3/uL (3.5-10.5)
[2022-01-06 04:57] LABS: Anion Gap 13 mmol/L (10-20); BUN (Urea Nitrogen) 9 mg/dL (7.0-18.7); Calc. Creatinine Clearance 153 mL/min (70-130); Calcium 8.6 mg/dL (7.8-10.44); Carbon Dioxide 26 mmol/L (22-29); Chloride 94 mmol/L (98-107); Glucose 213 mg/dL (70-105); Magnesium 1.6 mg/dL (1.6-2.6); Phosphorus 2.8 mg/dL (2.3-4.7); Potassium 4.3 mmol/L (3.5-5.1); Sodium 129 mmol/L (136-145)
[2022-01-06 05:06] LABS: MDiff Complete? YES
[2022-01-06 05:27] LABS: Lymphocytes 6 % (21-51); Monocytes 8 % (0-10); Neutrophil 86 % (42-75)
[2022-01-06 05:30] LABS: Platelet Morphology Comment Appears Increased; Polychromasia SLIGHT = 2-3 cells (100X) (0-2/hpf)
[2022-01-06] MEDS ORDERED: Magnesium 2 GM/50 ML(in water) 4 GM in Premix Bag 1 BAG IVPB SCH (06:15)
[2022-01-06] MEDS: traMADol HCl 50 MG TAB PO SCH ×3 (06:16→19:04)
[2022-01-06] MEDS: HumaLOG 300 UNITS/3 ML VIAL SC PRN ×4 (06:19→20:58)
[2022-01-06] MEDS ORDERED: Sodium Bicarbonate 2.5 MEQ/5 ML VIAL ONE (08:04)
[2022-01-06] MEDS: Enoxaparin Sodium 80 MG/0.8 ML SYRINGE SC SCH (09:16)
[2022-01-06] MEDS: Zinc Sulfate 220 MG CAP PO SCH (09:17)
[2022-01-06] MEDS: Simvastatin 10 MG TAB PO SCH (09:17)
[2022-01-06] MEDS: Ascorbic Acid 500 mg Chewable Tablet PO SCH (09:17)
[2022-01-06] MEDS: Gabapentin 400 MG CAP PO SCH ×3 (09:17→20:52)
[2022-01-06] MEDS: predniSONE 10 MG TAB PO SCH ×2 (09:17→20:53)
[2022-01-06] MEDS: Furosemide 20 MG TAB PO SCH (09:18)
[2022-01-06] MEDS: Polyethylene Glycol 3350 17 GM Packet PO SCH (09:18)
[2022-01-06] MEDS: PHOS-NAK 1 PKT PACK PO SCH ×3 (09:18→20:52)
[2022-01-06] MEDS: Folic Acid 1 MG TAB PO SCH ×2 (09:18→20:53)
[2022-01-06] MEDS: Metoprolol Tartrate 25 MG TAB PO SCH ×2 (09:19→20:53)
[2022-01-06] MEDS: Amlodipine 10 MG TAB PO SCH (09:19)
[2022-01-06] MEDS: Ondansetron ODT 4 MG TAB PO PRN (09:49)
[2022-01-06] MEDS: Magnesium 2 GM/50 ML(in water) 2 GM in Premix Bag 1 BAG IVPB SCH ×2 (13:44→16:31)
[2022-01-06] MEDS: Amitriptyline HCl 25 MG TAB PO SCH (20:52)
[2022-01-06] MEDS: Apixaban 5 MG TAB PO SCH (20:53)
[2022-01-06] MEDS: Cholecalciferol 1,000 UNITS (25 MCG) TAB PO SCH (20:53)
[2022-01-07] MEDS: traMADol HCl 50 MG TAB PO SCH ×5 (00:01→23:55)
[2022-01-07] MEDS: Piperacillin/Tazobactam 4.5 GM in Sodium Chloride 0.9% 100 ML IVPB SCH ×3 (03:53→20:10)
[2022-01-07 05:01] LABS: Hemoglobin 8.3 g/dL (12.0-15.5); Mean Corpuscular HGB CONC 31.4 g/dL (32.0-36.0); Mean Corpuscular Hemoglobin 25.4 pg (27.0-33.0); Mean Corpuscular Volume 80.7 fl (81.6-98.3); Mean Platelet Volume 8.5 fl (7.4-10.4); Platelet Count 609 10x3/uL (150-450); RBC Distribution Width 16.9 % (11.5-14.5); Red Blood Cell (RBC) Count 3.27 10x6/uL (3.90-5.03); White Blood Cell (WBC) Count 16.3 10x3/uL (3.5-10.5)
[2022-01-07] MEDS: HumaLOG 300 UNITS/3 ML VIAL SC PRN ×2 (05:07→20:14)
[2022-01-07 05:25] LABS: Anion Gap 14 mmol/L (10-20); BUN (Urea Nitrogen) 12 mg/dL (7.0-18.7); Calc. Creatinine Clearance 140 mL/min (70-130); Calcium 8.7 mg/dL (7.8-10.44); Carbon Dioxide 29 mmol/L (22-29); Chloride 92 mmol/L (98-107); Glucose 196 mg/dL (70-105); Magnesium 2.1 mg/dL (1.6-2.6); Phosphorus 2.4 mg/dL (2.3-4.7); Potassium 4.6 mmol/L (3.5-5.1); Sodium 130 mmol/L (136-145)
[2022-01-07 05:56] LABS: MDiff Complete? YES; Platelet Morphology Comment Appears Increased
[2022-01-07 05:58] LABS: Hypochromia MODERATE=16-30 cells (100X) (0-5/hpf); Macrocytosis SLIGHT = 6-15 cells (100X) (0-5/hpf); Polychromasia SLIGHT = 2-3 cells (100X) (0-2/hpf)
[2022-01-07 06:00] LABS: Band 1 % (5-11); Lymphocytes 16 % (21-51); Metamyelocyte 1 % (0-0); Monocytes 11 % (0-10); Neutrophil 71 % (42-75); Nucleated RBC 2 % (0)
[2022-01-07] MEDS: Ascorbic Acid 500 mg Chewable Tablet PO SCH (09:13)
[2022-01-07] MEDS: Metoprolol Tartrate 25 MG TAB PO SCH ×2 (09:13→20:11)
[2022-01-07] MEDS: Zinc Sulfate 220 MG CAP PO SCH (09:13)
[2022-01-07] MEDS: Amlodipine 10 MG TAB PO SCH (09:13)
[2022-01-07] MEDS: Folic Acid 1 MG TAB PO SCH ×2 (09:14→20:11)
[2022-01-07] MEDS: Gabapentin 400 MG CAP PO SCH ×3 (09:14→20:10)
[2022-01-07] MEDS: Furosemide 20 MG TAB PO SCH (09:14)
[2022-01-07] MEDS: predniSONE 10 MG TAB PO SCH ×2 (09:15→20:11)
[2022-01-07] MEDS: Polyethylene Glycol 3350 17 GM Packet PO SCH (09:15)
[2022-01-07] MEDS: Simvastatin 10 MG TAB PO SCH (09:15)
[2022-01-07] MEDS: Apixaban 5 MG TAB PO SCH ×2 (09:17→20:11)
[2022-01-07] MEDS: Amitriptyline HCl 25 MG TAB PO SCH (20:10)
[2022-01-07] MEDS: Cholecalciferol 1,000 UNITS (25 MCG) TAB PO SCH (20:11)
[2022-01-08] MEDS: Piperacillin/Tazobactam 4.5 GM in Sodium Chloride 0.9% 100 ML IVPB SCH ×3 (04:09→19:45)
[2022-01-08] MEDS: HumaLOG 300 UNITS/3 ML VIAL SC PRN ×4 (04:11→21:32)
[2022-01-08 04:30] LABS: Hemoglobin 8.1 g/dL (12.0-15.5); Mean Corpuscular HGB CONC 31.3 g/dL (32.0-36.0); Mean Corpuscular Hemoglobin 25.6 pg (27.0-33.0); Mean Corpuscular Volume 81.7 fl (81.6-98.3); Mean Platelet Volume 8.5 fl (7.4-10.4); Platelet Count 551 10x3/uL (150-450); RBC Distribution Width 17.2 % (11.5-14.5); Red Blood Cell (RBC) Count 3.17 10x6/uL (3.90-5.03); White Blood Cell (WBC) Count 15.7 10x3/uL (3.5-10.5)
[2022-01-08 04:52] LABS: Anion Gap 14 mmol/L (10-20); BUN (Urea Nitrogen) 14 mg/dL (7.0-18.7); Calc. Creatinine Clearance 143 mL/min (70-130); Calcium 8.9 mg/dL (7.8-10.44); Carbon Dioxide 29 mmol/L (22-29); Chloride 92 mmol/L (98-107); Glucose 171 mg/dL (70-105); Magnesium 1.6 mg/dL (1.6-2.6); Phosphorus 2.5 mg/dL (2.3-4.7); Potassium 4.3 mmol/L (3.5-5.1); Sodium 131 mmol/L (136-145)
[2022-01-08] MEDS: traMADol HCl 50 MG TAB PO SCH ×3 (05:10→18:33)
[2022-01-08 05:38] LABS: MDiff Complete? YES; Platelet Morphology Comment Appears Increased
[2022-01-08 05:43] LABS: Polychromasia SLIGHT = 2-3 cells (100X) (0-2/hpf)
[2022-01-08 05:44] LABS: Lymphocytes 22 % (21-51); Monocytes 6 % (0-10); Neutrophil 72 % (42-75); Nucleated RBC 3 % (0)
[2022-01-08] MEDS: Polyethylene Glycol 3350 17 GM Packet PO SCH (08:43)
[2022-01-08] MEDS: Ascorbic Acid 500 mg Chewable Tablet PO SCH (08:43)
[2022-01-08] MEDS: Amlodipine 10 MG TAB PO SCH (08:43)
[2022-01-08] MEDS: Folic Acid 1 MG TAB PO SCH ×2 (08:44→21:03)
[2022-01-08] MEDS: Apixaban 5 MG TAB PO SCH ×2 (08:44→21:03)
[2022-01-08] MEDS: Furosemide 20 MG TAB PO SCH (08:44)
[2022-01-08] MEDS: Zinc Sulfate 220 MG CAP PO SCH (08:44)
[2022-01-08] MEDS: predniSONE 10 MG TAB PO SCH ×2 (08:44→21:03)
[2022-01-08] MEDS: Metoprolol Tartrate 25 MG TAB PO SCH ×2 (08:44→21:03)
[2022-01-08] MEDS: Gabapentin 400 MG CAP PO SCH ×3 (08:44→21:03)
[2022-01-08] MEDS: Simvastatin 10 MG TAB PO SCH (08:44)
[2022-01-08] MEDS ORDERED: Sodium Chloride 0.9% 100 ML ONE (12:25)
[2022-01-08] MEDS: Cholecalciferol 1,000 UNITS (25 MCG) TAB PO SCH (21:03)
[2022-01-08] MEDS: Amitriptyline HCl 25 MG TAB PO SCH (21:04)
[2022-01-09] MEDS: traMADol HCl 50 MG TAB PO SCH ×3 (00:07→13:12)
[2022-01-09] MEDS: Piperacillin/Tazobactam 4.5 GM in Sodium Chloride 0.9% 100 ML IVPB SCH (04:29)
[2022-01-09 04:55] LABS: #Eosinphils 0.1 10x3/uL (0.0-0.5); #Monocytes 0.8 10x3/uL (0.0-1.1); #Neutrophils 11.5 10x3/uL (1.5-8.4); %Basophils 0.2 % (0.0-2.0); %Eosinophils 0.8 % (0.0-6.0); %Lymphocytes 19.2 % (18.0-47.0); %Monocytes 4.9 % (0.0-10.0); %Neutrophils 69.5 % (40.0-75.0); Hemoglobin 7.7 g/dL (12.0-15.5); Mean Corpuscular HGB CONC 30.6 g/dL (32.0-36.0); Mean Corpuscular Hemoglobin 25.7 pg (27.0-33.0); Mean Platelet Volume 8.1 fl (7.4-10.4); Platelet Count 468 10x3/uL (150-450); RBC Distribution Width 17.9 % (11.5-14.5); White Blood Cell (WBC) Count 16.6 10x3/uL (3.5-10.5)
[2022-01-09 05:01] LABS: Anion Gap 13 mmol/L (10-20); BUN (Urea Nitrogen) 10 mg/dL (7.0-18.7); Calc. Creatinine Clearance 169 mL/min (70-130); Calcium 8.8 mg/dL (7.8-10.44); Carbon Dioxide 28 mmol/L (22-29); Chloride 94 mmol/L (98-107); Glucose 103 mg/dL (70-105); Magnesium 1.3 mg/dL (1.6-2.6); Phosphorus 2.6 mg/dL (2.3-4.7); Potassium 3.7 mmol/L (3.5-5.1); Sodium 131 mmol/L (136-145)
[2022-01-09 05:04] LABS: Band 4 % (5-11); Lymphocytes 13 % (21-51); Metamyelocyte 3 % (0-0); Monocytes 7 % (0-10); Myelocyte 1 % (0-0); Nucleated RBC 4 % (0); Reactive Lymphocytes 2 % (0-10)
[2022-01-09 05:05] LABS: Neutrophil 70 % (42-75)
[2022-01-09 05:07] LABS: Anisocytosis SLIGHT = 6-15 cells (100X) (0-5/hpf); Hypochromia SLIGHT = 6-15 cells (100X) (0-5/hpf); Macrocytosis SLIGHT = 6-15 cells (100X) (0-5/hpf); Microcytosis SLIGHT = 6-15 cells (100X) (0-5/hpf); Platelet Morphology Comment Appears Adequate; Polychromasia SLIGHT = 2-3 cells (100X) (0-2/hpf)
[2022-01-09 05:08] LABS: Basophilic Stippling SLIGHT = 1-2 cells (100X) (None Seen); Target Cells SLIGHT = 2-5 cells (100X) (0-1/hpf)
[2022-01-09] MEDS: Gabapentin 400 MG CAP PO SCH ×2 (09:48→21:39)
[2022-01-09] MEDS: Ascorbic Acid 500 mg Chewable Tablet PO SCH (09:49)
[2022-01-09] MEDS: Simvastatin 10 MG TAB PO SCH (09:49)
[2022-01-09] MEDS: predniSONE 10 MG TAB PO SCH ×2 (09:49→21:38)
[2022-01-09] MEDS: Zinc Sulfate 220 MG CAP PO SCH (09:50)
[2022-01-09] MEDS: Amlodipine 10 MG TAB PO SCH (09:50)
[2022-01-09] MEDS: Apixaban 5 MG TAB PO SCH ×2 (09:50→21:38)
[2022-01-09] MEDS: Metoprolol Tartrate 25 MG TAB PO SCH ×2 (09:51→21:38)
[2022-01-09] MEDS: Folic Acid 1 MG TAB PO SCH ×2 (09:51→21:38)
[2022-01-09] MEDS: Furosemide 20 MG TAB PO SCH (09:51)
[2022-01-09] MEDS: Polyethylene Glycol 3350 17 GM Packet PO SCH (09:51)
[2022-01-09] MEDS: HumaLOG 300 UNITS/3 ML VIAL SC PRN ×2 (13:14→18:05)
[2022-01-09] MEDS ORDERED: Piperacillin/Tazobactam 3.375 GM in Sodium Chloride 0.9% 100 ML IVPB SCH ×2 (13:15→20:00)
[2022-01-09 17:07] VITALS: TEMP 98
[2022-01-09 19:15] VITALS: BP 98/51
[2022-01-09] MEDS: Amitriptyline HCl 25 MG TAB PO SCH (21:37)
[2022-01-09] MEDS: Cholecalciferol 1,000 UNITS (25 MCG) TAB PO SCH (21:38)
== END 2022-01-09 21:55 | disposition home health service (06) | DRG 871 ==
LOC: CSHTELE 07:40
PROVIDERS: ADMIT Emergency Medicine; ATTEND Family Medicine
PROC: 8E0ZXY6 Isolation (ICD-10-PCS; 2022-01-01)
PROC: 3E03329 Introduction of Other Anti-infective into Peripheral Vein, Percutaneous Approach (ICD-10-PCS; 2022-01-01)
PROC: 02HV33Z Insertion of Infusion Device into Superior Vena Cava, Percutaneous Approach (ICD-10-PCS; principal; 2022-01-06)
PROC: B5181ZA Fluoroscopy of Superior Vena Cava using Low Osmolar Contrast, Guidance (ICD-10-PCS; 2022-01-06)
PROC: B548ZZA Ultrasonography of Superior Vena Cava, Guidance (ICD-10-PCS; 2022-01-06)
DX: A41.9 Sepsis, unspecified organism (principal); L89.154 Pressure ulcer of sacral region, stage 4; U07.1 COVID-19; E87.1 Hypo-osmolality and hyponatremia; G82.20 Paraplegia, unspecified; M86.8X7 Other osteomyelitis, ankle and foot; I82.411 Acute embolism and thrombosis of right femoral vein; E11.52 Type 2 diabetes mellitus with diabetic peripheral angiopathy with gangrene; I96 Gangrene, not elsewhere classified; I47.2 Ventricular tachycardia; Z68.41 Body mass index [BMI] 40.0-44.9, adult; R65.20 Severe sepsis without septic shock; K21.9 Gastro-esophageal reflux disease without esophagitis; N18.2 Chronic kidney disease, stage 2 (mild); F31.9 Bipolar disorder, unspecified; E83.42 Hypomagnesemia; E66.01 Morbid (severe) obesity due to excess calories; E11.69 Type 2 diabetes mellitus with other specified complication; I12.9 Hypertensive chronic kidney disease with stage 1 through stage 4 chronic kidney disease, or unspecified chronic kidney disease; E11.22 Type 2 diabetes mellitus with diabetic chronic kidney disease; E87.5 Hyperkalemia; Z88.8 Allergy status to other drugs, medicaments and biological substances; Z79.82 Long term (current) use of aspirin; Z79.01 Long term (current) use of anticoagulants; Z79.899 Other long term (current) drug therapy; Z86.711 Personal history of pulmonary embolism
CPT/HCPCS: 36415; 36416; 36569; 70553; 71045; 71260; 72156; 74177; 76705; 80048; 80202; 82533; 82805; 83605; 83735; 83930; 83935; 84100; 84300; 84443; 84484; 84540; 84550; 85025; 85652; 86140; 87040; 87081; 87086; 87149; 93005; 93010; 93306; 94760; C1751; J0610; J0692; J1650; J1815; J2543; J3370; J3475; J3490; J7030; J7050; J7512; Q0162

== ENCOUNTER 2022-06-26 12:28 | Outpatient (CLI) | payer OTHER | END 2022-06-26 12:29 | disposition home or self-care (01) | LOC: CSHWCC 12:28 | PROVIDERS: ATTEND Nurse Practitioner Family | DX: L89.154 Pressure ulcer of sacral region, stage 4 (principal); L89.623 Pressure ulcer of left heel, stage 3; L98.492 Non-pressure chronic ulcer of skin of other sites with fat layer exposed | CPT/HCPCS: 99214; G0463 ==

== ENCOUNTER 2022-07-10 12:49 | Outpatient (CLI) | payer OTHER | END 2022-07-10 12:50 | disposition home or self-care (01) | LOC: CSHWCC 12:49 | PROVIDERS: ATTEND Preventive Medicine Undersea and Hyperbaric Medicine | DX: L89.154 Pressure ulcer of sacral region, stage 4 (principal); L89.623 Pressure ulcer of left heel, stage 3; L89.112 Pressure ulcer of right upper back, stage 2; L98.492 Non-pressure chronic ulcer of skin of other sites with fat layer exposed | CPT/HCPCS: 36416; 97605; 99213; G0463 ==

== ENCOUNTER 2022-07-13 10:13 | Outpatient (CLI) | payer OTHER | END 2022-07-13 10:14 | disposition home or self-care (01) | LOC: CSHWCC 10:13 | PROVIDERS: ATTEND Preventive Medicine Undersea and Hyperbaric Medicine | DX: L89.154 Pressure ulcer of sacral region, stage 4 (principal); L89.212 Pressure ulcer of right hip, stage 2; L89.623 Pressure ulcer of left heel, stage 3; L98.492 Non-pressure chronic ulcer of skin of other sites with fat layer exposed | CPT/HCPCS: 36416; 87070; 87205; 99214; G0463 ==

== ENCOUNTER 2022-07-19 08:02 | Outpatient (CLI) | payer OTHER | END 2022-07-19 08:03 | disposition home or self-care (01) | LOC: CSHWCC 08:02 | PROVIDERS: ATTEND Preventive Medicine Undersea and Hyperbaric Medicine | DX: L89.154 Pressure ulcer of sacral region, stage 4 (principal); L89.623 Pressure ulcer of left heel, stage 3; L89.212 Pressure ulcer of right hip, stage 2; L98.492 Non-pressure chronic ulcer of skin of other sites with fat layer exposed | CPT/HCPCS: 36416; 99213; G0463 ==

== ENCOUNTER 2022-07-25 14:41 | Outpatient (CLI) | payer OTHER | END 2022-07-25 14:42 | disposition home or self-care (01) | LOC: CSHWCC 14:41 | PROVIDERS: ATTEND Preventive Medicine Undersea and Hyperbaric Medicine | DX: L89.154 Pressure ulcer of sacral region, stage 4 (principal); L89.623 Pressure ulcer of left heel, stage 3; L89.212 Pressure ulcer of right hip, stage 2; L98.492 Non-pressure chronic ulcer of skin of other sites with fat layer exposed | CPT/HCPCS: 99213; G0463 ==

== ENCOUNTER 2022-08-31 09:23 | Outpatient (CLI) | payer OTHER | END 2022-08-31 09:24 | disposition home or self-care (01) | LOC: CSHWCC 09:23 | PROVIDERS: ATTEND Preventive Medicine Undersea and Hyperbaric Medicine | DX: L89.154 Pressure ulcer of sacral region, stage 4 (principal); L89.623 Pressure ulcer of left heel, stage 3 | CPT/HCPCS: 36416; 99213; G0463 ==

== ENCOUNTER 2022-09-28 13:54 | Outpatient (CLI) | payer OTHER | END 2022-09-28 13:55 | disposition home or self-care (01) | LOC: CSHWCC 13:54 | PROVIDERS: ATTEND Nurse Practitioner Family | DX: L89.154 Pressure ulcer of sacral region, stage 4 (principal); L89.623 Pressure ulcer of left heel, stage 3; L89.892 Pressure ulcer of other site, stage 2 ==